=== PATIENT | male | born 1985 | race Caucasian/White ===

== ENCOUNTER 2016-08-07 18:26 | Emergency (ER) | payer OTHER ==
[~2016-08-07] VITALS: Ht 195.6 cm; Wt 114.5 kg
[~2016-08-07 18:26] MED LIST: ATARAX,VISTARIL25 MG PO; ATARAX,VISTARIL50 MG PO; ATIVAN0.5 MG PO; ATIVAN2 MG PO; B COMPLETE1 EACH PO; B-1100 MG PO; B-121000 MC2 PO; BENADRYL ALLERG25 MG PO; BENADRYL25 MG PO; BUSPAR10 MG PO; CHLORDIAZEPOXID25 MG PO; CLONAZEPAM1 MG PO; CLONIDINE HCL0.1 MG PO; CYMBALTA60 MG PO; DAILY VITE1 EAC1 PO; DEPAKOTE500 MG PO; DIVALPROEX SOD500 MG PO; DULOXETINE HCL40 MG PO; DULOXETINE HCL60 MG PO; FLUOXETINE HCL20 MG PO; FOLIC ACID1 MG PO; IBUPROFEN800 MG PO; KETOROLAC TROME10 MG PO; LIBRIUM25 MG PO; LOPRESSOR25 MG PO; LORAZEPAM1 MG PO; LUNESTA2 MG PO; MEN'S MULTI-VI1 EACH PO; METOPROLOL SUCC25 MG PO; METOPROLOL SUCC50 MG PO; ONDANSETRON ODT4 MG PO; ONE-A-DAY ESSE1 EAC1 PO; PAXIL20 MG PO; PERCOCET; PROZAC20 MG PO; PROZAC40 MG PO; QUETIAPINE FUMA25 MG PO; QUETIAPINE FUMA50 MG PO; SEROQUEL50 MG PO; THIAMINE HCL100 MG PO; TOPROL XL50 MG PO; TORADOL10 MG PO; TRAZODONE HCL50 MG PO; Thiamine,Vitamin B1 PO; XANAX0.5 MG PO; ZANTAC150 MG PO; ZOFRAN ODT4 MG PO; ZOFRAN4 MG PO
[2016-08-08 03:55] VITALS: BP 141/81
== END 2016-08-08 03:58 | disposition home or self-care (01) ==
LOC: EME 18:26
DX: F10.129 Alcohol abuse with intoxication, unspecified (principal); E78.5 Hyperlipidemia, unspecified; I10 Essential (primary) hypertension; Z87.442 Personal history of urinary calculi
CPT/HCPCS: 99281; 99283

== ENCOUNTER 2016-08-08 11:53 | Emergency (ER) | payer OTHER ==
[~2016-08-08] VITALS: Ht 195.6 cm; Wt 125.0 kg
[2016-08-08 16:10] VITALS: BP 124/74
[2016-08-08 16:24] LABS: POINT-OF-CARE METER ID UU14100415
== END 2016-08-08 16:20 | disposition home or self-care (01) ==
LOC: EME → EDBD 11:53 → EME 11:53
PROVIDERS: Emergency Medicine
DX: F10.129 Alcohol abuse with intoxication, unspecified (principal); F17.200 Nicotine dependence, unspecified, uncomplicated
CPT/HCPCS: 82948; 99281; 99284

== ENCOUNTER 2016-08-08 17:30 | Emergency (ER) | payer OTHER ==
[~2016-08-08] VITALS: Ht 198.1 cm; Wt 102.2 kg
[2016-08-09 02:52] VITALS: BP 135/84
== END 2016-08-09 02:53 | disposition home or self-care (01) ==
LOC: EME 17:30
DX: F10.129 Alcohol abuse with intoxication, unspecified (principal)
CPT/HCPCS: 99281; 99285

== ENCOUNTER 2017-01-14 10:58 | Inpatient (IN) | payer OTHER ==
[~2017-01-14] VITALS: Ht 195.6 cm; Wt 108.6 kg
[2017-01-14 12:31] LABS: ADD MIUA? YES; BILIRUBIN NEGATIVE; BLOOD MODERATE; COLOR AMBER ((YELLOW)); GLUCOSE (STRIP) NEGATIVE; KETONES 20; LEUKOCYTES NEGATIVE; NITRITE NEGATIVE; PROTEIN (STRIP) 100; SPECIFIC GRAVITY 1.026 (1.000-1.030); UROBILINOGEN 0.2 MG/DL (0.2-1.0)
[2017-01-14 12:38] LABS: BACTERIA RARE /HPF; EPITHELIAL CELLS RARE /HPF; HYALINE CASTS TNTC /LPF; MUCUS 4+ /LPF; UCUL ADDED? NO; WHITE BLOOD CELLS 0-5 /HPF (0-5)
[2017-01-14 12:40] LABS: HEMATOCRIT 54.4 % (38.0-50.0); MCH 30.8 PG (29.0-34.0); MCV 90.7 FL (86-99); PLATELET COUNT 221 K/uL (156-360); RBC DIS.WIDTH-CV 13.6 % (11.8-14.6); RBC DIS.WIDTH-SD 45.1 % (39-53); WHITE BLOOD COUNT 7.9 K/uL (4.1-10.2)
[2017-01-14 12:47] LABS: PROTHROMBIN TIME 11.2 SEC (10.2-12.9)
[2017-01-14 13:19] LABS: CHLORIDE 97 mEq/L (99-109); POTASSIUM 4.4 mEq/L (3.7-5.4); SODIUM 141 mEq/L (136-147)
[2017-01-14 13:21] LABS: GLUCOSE 72 mg/dL (70-99)
[2017-01-14 13:22] LABS: ANION GAP 24 MEQ/L (2-14)
[2017-01-14 13:23] LABS: TOTAL BILIRUBIN 0.8 mg/dL (0.0-1.0)
[2017-01-14 13:24] LABS: SERUM ETHYL ALCOHOL 234 mg/dL
[2017-01-14 13:25] LABS: ALKALINE PHOSPHATASE 100 IU/L (3-129); GFR ESTIMATE (CALCULATED) > 59 mL/min/
[2017-01-14 13:26] LABS: UREA NITROGEN (BUN) 15 mg/dL (9-23)
[2017-01-14] MEDS ORDERED: METOPROLOL SUCC50 MG PO (14:36)
[2017-01-14 16:19] LABS: MAGNESIUM 2.2 mg/dL (1.3-2.7)
[2017-01-14 16:53] VITALS: BP 139/93
[2017-01-14 19:33] VITALS: BP 135/73
[2017-01-14 20:46] LABS: HEMATOCRIT 43.7 % (38.0-50.0)
[2017-01-14 21:50] LABS: HEMATOCRIT 41.1 % (38.0-50.0); MCHC 34.8 G/DL (30.0-36.0); MCV 91.9 FL (86-99); MEAN PLAT.VOLUME 9.3 uM^3 (9.0-12.4); PLATELET COUNT 175 K/uL (156-360); RBC DIS.WIDTH-CV 13.7 % (11.8-14.6); RBC DIS.WIDTH-SD 46.3 % (39-53); WHITE BLOOD COUNT 6.6 K/uL (4.1-10.2)
[2017-01-14 22:12] LABS: RED BLOOD COUNT 4.47 M/uL (4.00-5.50)
[2017-01-14 23:25] VITALS: BP 137/71
[2017-01-15 03:46] VITALS: BP 131/67
[2017-01-15 05:58] LABS: MCV 92.8 FL (86-99)
[2017-01-15 06:25] LABS: ALKALINE PHOSPHATASE 70 IU/L (3-129); DIRECT BILIRUBIN 0.3 mg/dL (0.0-0.3); IRON 235 MCG/DL (35-150); TOTAL BILIRUBIN 1.5 MG/DL (0.0-1.0)
[2017-01-15 07:24] VITALS: BP 137/74
[2017-01-15 08:13] LABS: FERRITIN 338 NG/ML (22-322)
[2017-01-15 10:38] LABS: HEMATOCRIT 40.3 % (38.0-50.0); MCH 31.8 PG (29.0-34.0); MCHC 34.2 G/DL (30.0-36.0); MCV 92.9 FL (86-99); MEAN PLAT.VOLUME 10.1 uM^3 (9.0-12.4); PLATELET COUNT 149 K/uL (156-360); RBC DIS.WIDTH-CV 13.6 % (11.8-14.6); RBC DIS.WIDTH-SD 46.3 % (39-53); RED BLOOD COUNT 4.34 M/uL (4.00-5.50); WHITE BLOOD COUNT 5.2 K/uL (4.1-10.2)
[2017-01-15 11:11] VITALS: BP 137/76
[2017-01-15 15:09] VITALS: BP 133/75
[2017-01-15 19:31] VITALS: BP 126/73
[2017-01-15 20:11] LABS: HEMATOCRIT 42.7 % (38.0-50.0); MCV 91.6 FL (86-99)
[2017-01-15 23:29] VITALS: BP 131/80
[2017-01-16 03:57] VITALS: BP 119/72
[2017-01-16 06:14] LABS: HEMATOCRIT 39.7 % (38.0-50.0); MCH 32.4 PG (29.0-34.0); MCHC 34.5 G/DL (30.0-36.0); MCV 93.9 FL (86-99); MEAN PLAT.VOLUME 10.5 uM^3 (9.0-12.4); PLATELET COUNT 132 K/uL (156-360); RBC DIS.WIDTH-CV 13.8 % (11.8-14.6); RBC DIS.WIDTH-SD 46.5 % (39-53); RED BLOOD COUNT 4.23 M/uL (4.00-5.50); WHITE BLOOD COUNT 4.2 K/uL (4.1-10.2)
[2017-01-16 08:16] VITALS: BP 123/79
[2017-01-16 09:06] LABS: HEMATOCRIT 40.5 % (38.0-50.0); MCV 93.5 FL (86-99)
[2017-01-16] MEDS ORDERED: VITAMIN B-1100 MG PO (09:24)
[2017-01-16] MEDS ORDERED: FOLIC ACID1 MG PO (09:24)
[2017-01-16] MEDS ORDERED: ZOFRAN4 MG PO (09:26)
[2017-01-16] MEDS ORDERED: CHLORDIAZEPOXID25 MG PO (09:26)
== END 2017-01-16 11:37 | disposition home or self-care (01) | DRG 379 ==
LOC: EME 10:58 → EDOF 14:26 → 5SOUTH 14:26 → ENRESERV 14:28 → 5SOUTH 16:39 → ENPENDDIS 01-16 → 5SOUTH 01-16 11:37
PROVIDERS: Emergency Medicine; Internal Medicine; Specialist
DX: K29.21 Alcoholic gastritis with bleeding (principal); K76.0 Fatty (change of) liver, not elsewhere classified; K27.4 Chronic or unspecified peptic ulcer, site unspecified, with hemorrhage; K22.6 Gastro-esophageal laceration-hemorrhage syndrome; E78.5 Hyperlipidemia, unspecified; F41.0 Panic disorder [episodic paroxysmal anxiety]; I10 Essential (primary) hypertension; Z87.442 Personal history of urinary calculi; F10.229 Alcohol dependence with intoxication, unspecified; Y90.7 Blood alcohol level of 200-239 mg/100 ml; F17.210 Nicotine dependence, cigarettes, uncomplicated; K21.9 Gastro-esophageal reflux disease without esophagitis; Z79.899 Other long term (current) drug therapy; R25.1 Tremor, unspecified; R51 Headache; R74.0 Nonspecific elevation of levels of transaminase and lactic acid dehydrogenase [LDH]; E83.119 Hemochromatosis, unspecified
CPT/HCPCS: 71010; 76705; 80053; 80076; 81003; 81256 90; 82728; 83540; 83735; 84466; 85014; 85018; 85027; 85610; 86900; 86901; 99281; 99285; C9113; G0480; J2060; J2250; J3411; J7030

== ENCOUNTER 2017-02-19 18:03 | Emergency (ER) | payer OTHER ==
[~2017-02-19] VITALS: Ht 195.6 cm; Wt 108.9 kg
[~2017-02-19 18:03] MED LIST changes: +VITAMIN B-1100 MG PO
[2017-02-19 18:50] LABS: CHLORIDE 101 mEq/L (99-109); SODIUM 144 mEq/L (136-147)
[2017-02-19 18:52] LABS: GLUCOSE 76 mg/dL (70-99)
[2017-02-19 18:54] LABS: ANION GAP 21 MEQ/L (2-14)
[2017-02-19 18:55] LABS: SERUM ETHYL ALCOHOL 262 mg/dL
[2017-02-19 18:56] LABS: GFR ESTIMATE (CALCULATED) > 59 mL/min/
[2017-02-19 18:57] LABS: UREA NITROGEN (BUN) 17 mg/dL (9-23)
[2017-02-19] MEDS ORDERED: VALIUM5 MG PO (21:05)
[2017-02-19] MEDS ORDERED: B-1100 MG PO (21:05)
[2017-02-19 21:21] VITALS: BP 159/95
== END 2017-02-19 21:51 | disposition home or self-care (01) ==
LOC: EME 18:03
PROVIDERS: Emergency Medicine
DX: F10.239 Alcohol dependence with withdrawal, unspecified (principal); Y90.8 Blood alcohol level of 240 mg/100 ml or more; F12.90 Cannabis use, unspecified, uncomplicated; E78.5 Hyperlipidemia, unspecified; R56.9 Unspecified convulsions; F17.200 Nicotine dependence, unspecified, uncomplicated; Z87.442 Personal history of urinary calculi
CPT/HCPCS: 80048; 99281; 99284; G0480; J2060; J2405; J3411; J7030; J7050

== ENCOUNTER 2017-02-21 14:15 | Inpatient (IN) | payer OTHER ==
[~2017-02-21] VITALS: Ht 198.1 cm; Wt 109.0 kg
[~2017-02-21 14:15] MED LIST changes: +VALIUM5 MG PO
[2017-02-21 15:01] LABS: MCH 31.7 PG (29.0-34.0); MCHC 34.6 G/DL (30.0-36.0); MCV 91.7 FL (86-99); PLATELET COUNT 168 K/uL (156-360); RBC DIS.WIDTH-CV 13.2 % (11.8-14.6); RBC DIS.WIDTH-SD 45.3 % (39-53); RED BLOOD COUNT 5.67 M/uL (4.00-5.50); WHITE BLOOD COUNT 8.1 K/uL (4.1-10.2)
[2017-02-21 15:13] LABS: CHLORIDE 99 mEq/L (99-109); POTASSIUM 3.8 mEq/L (3.7-5.4); SODIUM 144 mEq/L (136-147)
[2017-02-21 15:15] LABS: GLUCOSE 88 mg/dL (70-99)
[2017-02-21 15:16] LABS: ANION GAP 16 MEQ/L (2-14)
[2017-02-21 15:18] LABS: SERUM ETHYL ALCOHOL 316 mg/dL
[2017-02-21 15:19] LABS: GFR ESTIMATE (CALCULATED) > 59 mL/min/
[2017-02-21 15:20] LABS: UREA NITROGEN (BUN) 13 mg/dL (9-23)
[2017-02-22 00:58] LABS: ADD MEDTOX COMMENT Y; AMPHETAMINE NEGATIVE (500 ng/mL); BARBITURATES NEGATIVE (200 ng/mL); BENZODIAZEPINES PRESUMPTIVE POSITIVE (150 ng/mL); COCAINE NEGATIVE (150 ng/mL); INTERNAL CONTROLS VALID? YES; METHADONE NEGATIVE (200 ng/mL); METHAMPHETAMINE NEGATIVE (500 ng/mL); OPIATES (MORPHINE) NEGATIVE (100 ng/mL); OXYCODONE NEGATIVE (100 ng/mL); PHENCYCLIDINE NEGATIVE (25 ng/mL); PROPOXYPHENE NEGATIVE (300 ng/mL); THC CANNABINOIDS NEGATIVE (50 ng/mL); TRICYCLIC ANTIDEPRESSANTS NEGATIVE (300 ng/mL)
[2017-02-22 04:24] LABS: BENZODIAZEPINES, URINE SCREEN POSITIVE (200 ng/mL)
[2017-02-22 05:23] VITALS: BP 137/88
[2017-02-22 07:55] VITALS: BP 139/86
[2017-02-22 15:24] VITALS: BP 136/82
[2017-02-23 07:56] VITALS: BP 115/69
[2017-02-23 15:19] VITALS: BP 143/80
[2017-02-24 07:37] VITALS: BP 112/63
[2017-02-24] MEDS ORDERED: DESYREL100 MG PO (09:49)
[2017-02-24] MEDS ORDERED: HYDROXYZINE PAM50 MG PO (09:49)
[2017-02-24] MEDS ORDERED: NALTREXONE HCL50 MG PO (09:49)
== END 2017-02-24 12:31 | disposition home or self-care (01) | DRG 897 ==
LOC: EME 14:15 → 1WEST 23:55 → EDOF 23:55 → ENRESERV 02-22 01:16 → 1WEST 02-22 05:18
DX: F10.229 Alcohol dependence with intoxication, unspecified (principal); R45.851 Suicidal ideations; S61.512A Laceration without foreign body of left wrist, initial encounter; S61.511A Laceration without foreign body of right wrist, initial encounter; X78.1XXA Intentional self-harm by knife, initial encounter; Y90.8 Blood alcohol level of 240 mg/100 ml or more; E78.5 Hyperlipidemia, unspecified; F17.210 Nicotine dependence, cigarettes, uncomplicated; F41.0 Panic disorder [episodic paroxysmal anxiety]; F41.1 Generalized anxiety disorder; I10 Essential (primary) hypertension; I48.2 Chronic atrial fibrillation; Z87.442 Personal history of urinary calculi; Z81.1 Family history of alcohol abuse and dependence; Z91.5 Personal history of self-harm; Y92.098 Other place in other non-institutional residence as the place of occurrence of the external cause
CPT/HCPCS: 80048; 84999; 85027; 90839; 97150 GO; 97165 GO; 99281; 99285; G0480; Q0177

== ENCOUNTER 2017-02-27 11:10 | Emergency (ER) | payer OTHER ==
[~2017-02-27] VITALS: Ht 195.6 cm; Wt 107.5 kg
[~2017-02-27 11:10] MED LIST changes: +DESYREL100 MG PO; +HYDROXYZINE PAM50 MG PO; +NALTREXONE HCL50 MG PO
[2017-02-27 12:17] LABS: HEMATOCRIT 51.9 % (38.0-50.0); MCH 31.8 PG (29.0-34.0); MCHC 34.3 G/DL (30.0-36.0); MCV 92.8 FL (86-99); MEAN PLAT.VOLUME 10.2 uM^3 (9.0-12.4); PLATELET COUNT 149 K/uL (156-360); RBC DIS.WIDTH-SD 44.4 % (39-53); RED BLOOD COUNT 5.59 M/uL (4.00-5.50); WHITE BLOOD COUNT 11.8 K/uL (4.1-10.2)
[2017-02-27 12:27] LABS: CHLORIDE 102 mEq/L (99-109); POTASSIUM 3.8 mEq/L (3.7-5.4); SODIUM 146 mEq/L (136-147)
[2017-02-27 12:29] LABS: GLUCOSE 72 mg/dL (70-99)
[2017-02-27 12:30] LABS: ANION GAP 25 MEQ/L (2-14)
[2017-02-27 12:31] LABS: TOTAL BILIRUBIN 0.4 mg/dL (0.0-1.0)
[2017-02-27 12:32] LABS: SERUM ETHYL ALCOHOL 300 mg/dL
[2017-02-27 12:33] LABS: ALKALINE PHOSPHATASE 96 IU/L (3-129); GFR ESTIMATE (CALCULATED) > 59 mL/min/
[2017-02-27 12:34] LABS: UREA NITROGEN (BUN) 13 mg/dL (9-23)
[2017-02-27 21:47] VITALS: BP 141/78
== END 2017-02-27 21:51 | disposition left against medical advice (07) ==
LOC: EME 11:10
PROVIDERS: Emergency Medicine
DX: F32.9 Major depressive disorder, single episode, unspecified (principal); F10.129 Alcohol abuse with intoxication, unspecified; Y90.8 Blood alcohol level of 240 mg/100 ml or more; E78.5 Hyperlipidemia, unspecified; F17.200 Nicotine dependence, unspecified, uncomplicated
CPT/HCPCS: 80053; 81003; 85027; 90839; 99281; 99285; G0480

== ENCOUNTER 2017-03-02 09:12 | Inpatient (IN) | payer OTHER ==
[~2017-03-02] VITALS: Ht 195.6 cm; Wt 109.0 kg
[2017-03-02 10:13] LABS: EOSINOPHIL COUNT 0.1 K/uL (0-0.3); HEMATOCRIT 49.8 % (38.0-50.0); IMMATURE GRANULOCYTE (%) 0.7 % (0.0-0.7); INSTRUMENT ABS NEUTROPHIL CT 3.6 K/uL; LYMPHOCYTE COUNT 1.7 K/uL (1.0-2.8); MCH 31.5 PG (29.0-34.0); MCHC 33.7 G/DL (30.0-36.0); MCV 93.4 FL (86-99); MEAN PLAT.VOLUME 9.6 uM^3 (9.0-12.4); MONOCYTE (%) 12.2 % (3-12); MONOCYTE COUNT 0.8 K/uL (0-0.8); NEUTROPHIL (%) 58.3 % (45-76); NEUTROPHIL COUNT 3.6 K/uL (1.8-6.4); PLATELET COUNT 156 K/uL (156-360); RBC DIS.WIDTH-CV 13.3 % (11.8-14.6); RBC DIS.WIDTH-SD 45.6 % (39-53); RED BLOOD COUNT 5.33 M/uL (4.00-5.50); WHITE BLOOD COUNT 6.1 K/uL (4.1-10.2)
[2017-03-02 10:23] LABS: CHLORIDE 104 mEq/L (99-109); POTASSIUM 3.7 mEq/L (3.7-5.4); SODIUM 146 mEq/L (136-147)
[2017-03-02 10:25] LABS: GLUCOSE 77 mg/dL (70-99)
[2017-03-02 10:26] LABS: ANION GAP 14 MEQ/L (2-14)
[2017-03-02 10:28] LABS: SERUM ETHYL ALCOHOL 216 mg/dL
[2017-03-02 10:29] LABS: GFR ESTIMATE (CALCULATED) > 59 mL/min/
[2017-03-02 10:30] LABS: UREA NITROGEN (BUN) 9 mg/dL (9-23)
[2017-03-02 14:27] LABS: AMPHETAMINE NEGATIVE (500 ng/mL); BARBITURATES NEGATIVE (200 ng/mL); BENZODIAZEPINES PRESUMPTIVE POSITIVE (150 ng/mL); COCAINE NEGATIVE (150 ng/mL); INTERNAL CONTROLS VALID? YES; METHADONE NEGATIVE (200 ng/mL); METHAMPHETAMINE NEGATIVE (500 ng/mL); OPIATES (MORPHINE) NEGATIVE (100 ng/mL); OXYCODONE NEGATIVE (100 ng/mL); PHENCYCLIDINE NEGATIVE (25 ng/mL); PROPOXYPHENE NEGATIVE (300 ng/mL); THC CANNABINOIDS NEGATIVE (50 ng/mL); TRICYCLIC ANTIDEPRESSANTS NEGATIVE (300 ng/mL)
[2017-03-02 14:28] LABS: ADD MEDTOX COMMENT Y
[2017-03-02 15:01] LABS: BENZODIAZEPINES, URINE SCREEN POSITIVE (200 ng/mL)
[2017-03-02 17:32] VITALS: BP 132/75
[2017-03-02 17:39] VITALS: BP 132/75
[2017-03-02 22:17] VITALS: BP 110/58
[2017-03-03 08:02] VITALS: BP 134/81
[2017-03-03 15:36] VITALS: BP 136/91
[2017-03-04 07:16] VITALS: BP 125/62
[2017-03-04 12:51] VITALS: BP 132/86
[2017-03-04 15:12] VITALS: BP 131/75
[2017-03-05 07:38] VITALS: BP 106/59
[2017-03-05] MEDS ORDERED: EFFEXOR XR37.5 MG PO (09:32)
== END 2017-03-05 12:47 | disposition home or self-care (01) | DRG 885 ==
LOC: EME 09:12 → EDOF 15:53 → 1WEST 15:53 → ENRESERV 17:20 → 1WEST 17:28
PROVIDERS: Emergency Medicine
PROC: HZ2ZZZZ Detoxification Services for Substance Abuse Treatment (ICD-10-PCS; principal; 2017-03-02)
DX: F33.9 Major depressive disorder, recurrent, unspecified (principal); F10.239 Alcohol dependence with withdrawal, unspecified; F41.1 Generalized anxiety disorder; R45.851 Suicidal ideations; I10 Essential (primary) hypertension; I48.91 Unspecified atrial fibrillation; E78.5 Hyperlipidemia, unspecified; F17.200 Nicotine dependence, unspecified, uncomplicated; Y90.7 Blood alcohol level of 200-239 mg/100 ml; Z91.19 Patient's noncompliance with other medical treatment and regimen; Z91.5 Personal history of self-harm
CPT/HCPCS: 80048; 84999; 85025; 90839; 97165 GO; 99281; 99285; G0480; Q0177

== ENCOUNTER 2017-03-10 13:56 | Inpatient (IN) | payer OTHER ==
[~2017-03-10] VITALS: Ht 195.6 cm; Wt 111.0 kg
[~2017-03-10 13:56] MED LIST changes: +EFFEXOR XR37.5 MG PO
[2017-03-10 14:51] LABS: EOSINOPHIL (%) 0 % (0-5); HEMATOCRIT 48.7 % (38.0-50.0); IMMATURE GRANULOCYTE (%) 0.7 % (0.0-0.7); IMMATURE GRANULOCYTE COUNT 0.1 K/uL; LYMPHOCYTE COUNT 1.6 K/uL (1.0-2.8); MCH 31.5 PG (29.0-34.0); MCHC 34.1 G/DL (30.0-36.0); MCV 92.4 FL (86-99); MEAN PLAT.VOLUME 9.4 uM^3 (9.0-12.4); MONOCYTE (%) 6.9 % (3-12); MONOCYTE COUNT 0.8 K/uL (0-0.8); NEUTROPHIL (%) 78.3 % (45-76); RBC DIS.WIDTH-CV 13.7 % (11.8-14.6); RBC DIS.WIDTH-SD 46.5 % (39-53); RED BLOOD COUNT 5.27 M/uL (4.00-5.50); WHITE BLOOD COUNT 11.5 K/uL (4.1-10.2)
[2017-03-10 14:52] LABS: PLATELET COUNT 229 K/uL (156-360)
[2017-03-10 14:57] LABS: CHLORIDE 102 mEq/L (99-109); POTASSIUM 4.3 mEq/L (3.7-5.4); SODIUM 144 mEq/L (136-147)
[2017-03-10 14:58] LABS: GLUCOSE 64 mg/dL (70-99)
[2017-03-10 15:00] LABS: ANION GAP 28 MEQ/L (2-14)
[2017-03-10 15:01] LABS: SERUM ETHYL ALCOHOL 270 mg/dL
[2017-03-10 15:02] LABS: GFR ESTIMATE (CALCULATED) > 59 mL/min/
[2017-03-10 15:03] LABS: UREA NITROGEN (BUN) 17 mg/dL (9-23)
[2017-03-10 15:53] LABS: ADD MIUA? YES; BILIRUBIN NEGATIVE; BLOOD SMALL; COLOR YELLOW ((YELLOW)); GLUCOSE (STRIP) NEGATIVE; KETONES 80; LEUKOCYTES NEGATIVE; NITRITE NEGATIVE; PROTEIN (STRIP) 100; SPECIFIC GRAVITY 1.027 (1.000-1.030); UROBILINOGEN 0.2 MG/DL (0.2-1.0)
[2017-03-10 15:57] LABS: AMPHETAMINE NEGATIVE (500 ng/mL); BARBITURATES NEGATIVE (200 ng/mL); BENZODIAZEPINES PRESUMPTIVE POSITIVE (150 ng/mL); COCAINE NEGATIVE (150 ng/mL); INTERNAL CONTROLS VALID? YES; METHADONE NEGATIVE (200 ng/mL); METHAMPHETAMINE NEGATIVE (500 ng/mL); OPIATES (MORPHINE) NEGATIVE (100 ng/mL); OXYCODONE NEGATIVE (100 ng/mL); PHENCYCLIDINE NEGATIVE (25 ng/mL); PROPOXYPHENE NEGATIVE (300 ng/mL); THC CANNABINOIDS NEGATIVE (50 ng/mL); TRICYCLIC ANTIDEPRESSANTS NEGATIVE (300 ng/mL)
[2017-03-10 15:58] LABS: ADD MEDTOX COMMENT Y
[2017-03-10 16:04] LABS: BACTERIA NONE SEEN /HPF; EPITHELIAL CELLS NONE SEEN /HPF; HYALINE CASTS 0-5 /LPF; MUCUS 3+ /LPF; RED BLOOD CELLS 0-5 /HPF (0-5)
[2017-03-10 16:24] LABS: BENZODIAZEPINES, URINE SCREEN POSITIVE (200 ng/mL)
[2017-03-10] MEDS ORDERED: HYDROXYZINE PAM50 MG PO (23:40)
[2017-03-10] MEDS ORDERED: ADVIL,NUPRIN,M200 MG PO (23:41)
[2017-03-10] MEDS ORDERED: DAILY VITAMIN1 EAC4 PO (23:42)
[2017-03-10] MEDS ORDERED: FOLIC ACID1 MG PO (23:42)
[2017-03-11 00:04] VITALS: BP 131/73
[2017-03-11 00:13] VITALS: BP 131/73
[2017-03-11 07:52] VITALS: BP 132/76
[2017-03-11] MEDS ORDERED: BUPROPION HCL100 M1 PO (09:13)
[2017-03-11] MEDS ORDERED: DISULFIRAM250 MG PO (09:13)
== END 2017-03-11 11:25 | disposition home or self-care (01) | DRG 885 ==
LOC: EME 13:56 → 1WEST 22:08 → EDOF 22:08 → 1WEST 23:44 → ENRESERV 23:44 → 1WEST 03-11 11:25
PROVIDERS: Emergency Medicine
DX: F33.9 Major depressive disorder, recurrent, unspecified (principal); R45.851 Suicidal ideations; F41.1 Generalized anxiety disorder; F10.20 Alcohol dependence, uncomplicated; I10 Essential (primary) hypertension; I48.91 Unspecified atrial fibrillation; Y90.8 Blood alcohol level of 240 mg/100 ml or more; F17.200 Nicotine dependence, unspecified, uncomplicated; T88.7XXA Unspecified adverse effect of drug or medicament, initial encounter; T44.7X6A Underdosing of beta-adrenoreceptor antagonists, initial encounter; Z91.19 Patient's noncompliance with other medical treatment and regimen; Z76.5 Malingerer [conscious simulation]; Z91.14 Patient's other noncompliance with medication regimen
CPT/HCPCS: 80048; 81003; 84999; 85025; 90839; 93005; 99281; 99285; G0480; J7030

== ENCOUNTER 2017-06-29 17:52 | Emergency (ER) | payer OTHER ==
[~2017-06-29] VITALS: Ht 195.6 cm; Wt 113.5 kg
[~2017-06-29 17:52] MED LIST changes: +ADVIL,NUPRIN,M200 MG PO; +BUPROPION HCL100 M1 PO; +DAILY VITAMIN1 EAC4 PO; +DISULFIRAM250 MG PO
[2017-06-29 18:44] LABS: HEMATOCRIT 48.6 % (38.0-50.0); HEMOGLOBIN 17.1 G/DL (12.5-16.6); MCH 32.3 PG (29.0-34.0); MCHC 35.2 G/DL (30.0-36.0); MCV 91.7 FL (86-99); PLATELET COUNT 170 K/uL (156-360); RBC DIS.WIDTH-CV 12.4 % (11.8-14.6); RBC DIS.WIDTH-SD 41.8 % (39-53); WHITE BLOOD COUNT 5.8 K/uL (4.1-10.2)
[2017-06-29 18:54] LABS: ALBUMIN 4.3 g/dL (3.2-4.8)
[2017-06-29 18:55] LABS: CHLORIDE 107 mEq/L (99-109); POTASSIUM 3.9 mEq/L (3.7-5.4); SODIUM 146 mEq/L (136-147)
[2017-06-29 18:57] LABS: GLUCOSE 96 mg/dL (70-99); TOTAL PROTEIN 7.6 g/dL (6.4-8.3)
[2017-06-29 18:59] LABS: TOTAL BILIRUBIN 0.3 mg/dL (0.0-1.0)
[2017-06-29 19:00] LABS: ALKALINE PHOSPHATASE 92 IU/L (3-129); SERUM ETHYL ALCOHOL 414 mg/dL
[2017-06-29 19:01] LABS: CREATININE 0.8 mg/dL (0.6-1.3); GFR ESTIMATE (CALCULATED) > 59 mL/min/ (58.99-99999)
[2017-06-29 19:02] LABS: AST (GOT) 51 IU/L (2-34); UREA NITROGEN (BUN) 11 mg/dL (9-23)
[2017-06-29 19:03] LABS: ALT (GPT) 61 IU/L (3-49)
[2017-06-29 19:04] LABS: LIPASE 34 U/L (1.0-51.0)
[2017-06-29 20:02] LABS: AMPHETAMINE NEGATIVE (500 ng/mL); BARBITURATES NEGATIVE (200 ng/mL); BENZODIAZEPINES NEGATIVE (150 ng/mL); BUPRENORPHINE NEGATIVE (10 ng/mL); COCAINE NEGATIVE (150 ng/mL); METHADONE NEGATIVE (200 ng/mL); METHAMPHETAMINE NEGATIVE (500 ng/mL); OPIATES (MORPHINE) NEGATIVE (100 ng/mL); OXYCODONE NEGATIVE (100 ng/mL); PHENCYCLIDINE NEGATIVE (25 ng/mL); PROPOXYPHENE NEGATIVE (300 ng/mL); THC CANNABINOIDS NEGATIVE (50 ng/mL); TRICYCLIC ANTIDEPRESSANTS NEGATIVE (300 ng/mL)
[2017-06-29 23:40] VITALS: BP 115/68
== END 2017-06-29 23:43 | disposition home or self-care (01) ==
LOC: EME 17:52
PROVIDERS: Emergency Medicine
DX: F10.121 Alcohol abuse with intoxication delirium (principal); F41.9 Anxiety disorder, unspecified; F17.200 Nicotine dependence, unspecified, uncomplicated; Y90.8 Blood alcohol level of 240 mg/100 ml or more; Z91.5 Personal history of self-harm
CPT/HCPCS: 80053; 83690; 85027; 99281; 99285; G0480; J7030

== ENCOUNTER 2017-07-11 16:20 | Inpatient (IN) | payer OTHER ==
[~2017-07-11] VITALS: Ht 198.1 cm; Wt 114.7 kg
[2017-07-11 18:15] LABS: ALBUMIN 3.8 g/dL (3.2-4.8); CHLORIDE 111 mEq/L (99-109); POTASSIUM 3.6 mEq/L (3.7-5.4); SODIUM 145 mEq/L (136-147)
[2017-07-11 18:16] LABS: HEMATOCRIT 39.5 % (38.0-50.0); HEMOGLOBIN 13.8 G/DL (12.5-16.6); MCH 32.2 PG (29.0-34.0); MCHC 34.9 G/DL (30.0-36.0); MCV 92.3 FL (86-99); PLATELET COUNT 132 K/uL (156-360); RBC DIS.WIDTH-CV 13.5 % (11.8-14.6); RED BLOOD COUNT 4.28 M/uL (4.00-5.50); WHITE BLOOD COUNT 5.1 K/uL (4.1-10.2)
[2017-07-11 18:18] LABS: GLUCOSE 112 mg/dL (70-99); TOTAL PROTEIN 6.6 g/dL (6.4-8.3)
[2017-07-11 18:20] LABS: TOTAL BILIRUBIN 0.1 mg/dL (0.0-1.0)
[2017-07-11 18:21] LABS: ALKALINE PHOSPHATASE 81 IU/L (3-129); SERUM ETHYL ALCOHOL 308 mg/dL
[2017-07-11 18:22] LABS: CREATININE 0.9 mg/dL (0.6-1.3); GFR ESTIMATE (CALCULATED) > 59 mL/min/ (58.99-99999)
[2017-07-11 18:23] LABS: AST (GOT) 36 IU/L (2-34); UREA NITROGEN (BUN) 6 mg/dL (9-23)
[2017-07-11 18:24] LABS: ALT (GPT) 73 IU/L (3-49)
[2017-07-12 05:12] VITALS: BP 123/72
[2017-07-12] MEDS ORDERED: WELLBUTRIN XL300 MG PO (05:54)
[2017-07-12] MEDS ORDERED: NEURONTIN100 MG PO (05:56)
[2017-07-12] MEDS ORDERED: NICODERM CQ1 EAC2 TD (05:57)
[2017-07-12] MEDS ORDERED: NICORELIEF2 MG BC (05:59)
[2017-07-12 07:52] VITALS: BP 137/63
[2017-07-12 15:23] VITALS: BP 132/67
[2017-07-13 08:15] VITALS: BP 124/71
[2017-07-13 15:09] VITALS: BP 115/65
[2017-07-14 07:43] VITALS: BP 106/60
[2017-07-14 15:35] VITALS: BP 110/61
[2017-07-15 07:45] VITALS: BP 121/76
[2017-07-15 15:25] VITALS: BP 98/57
[2017-07-16 08:31] VITALS: BP 111/63
[2017-07-16] MEDS ORDERED: NEURONTIN600 MG PO (09:17)
[2017-07-16] MEDS ORDERED: NALTREXONE HCL50 MG PO (09:17)
[2017-07-16] MEDS ORDERED: DESYREL100 MG PO (09:17)
[2017-07-16] MEDS ORDERED: WELLBUTRIN XL300 MG PO (09:17)
== END 2017-07-16 12:58 | disposition home or self-care (01) | DRG 885 ==
LOC: EME 16:20 → 1WEST 07-12 02:52 → EDOF 07-12 02:52 → ENRESERV 07-12 03:46 → 1WEST 07-12 05:05
PROVIDERS: Emergency Medicine
DX: F33.1 Major depressive disorder, recurrent, moderate (principal); F10.239 Alcohol dependence with withdrawal, unspecified; R45.851 Suicidal ideations; F41.9 Anxiety disorder, unspecified; F10.220 Alcohol dependence with intoxication, uncomplicated; F10.230 Alcohol dependence with withdrawal, uncomplicated; Y90.8 Blood alcohol level of 240 mg/100 ml or more
CPT/HCPCS: 80053; 80306 90; 81003; 85027; 90837; 99281; 99285; G0480; J0515; J1200; J1630; J2060; Q0177

== ENCOUNTER 2017-07-20 09:40 | Emergency (ER) | payer OTHER ==
[~2017-07-20] VITALS: Ht 198.1 cm; Wt 113.2 kg
[~2017-07-20 09:40] MED LIST changes: +NEURONTIN100 MG PO; +NEURONTIN600 MG PO; +NICODERM CQ1 EAC2 TD; +NICORELIEF2 MG BC; +WELLBUTRIN XL300 MG PO
[2017-07-20 11:12] LABS: APPEARANCE CLEAR ((CLEAR)); BILIRUBIN NEGATIVE; BLOOD NEGATIVE; COLOR YELLOW ((YELLOW)); GLUCOSE (STRIP) NEGATIVE; KETONES NEGATIVE; LEUKOCYTES NEGATIVE; NITRITE NEGATIVE; PROTEIN (STRIP) 100; SPECIFIC GRAVITY 1.011 (1.000-1.030); UROBILINOGEN 0.2 MG/DL (0.2-1.0)
[2017-07-20 11:15] LABS: BACTERIA NONE SEEN /HPF; EPITHELIAL CELLS RARE /HPF; HYALINE CASTS 0-5 /LPF; MUCUS 1+ /LPF; RED BLOOD CELLS 0-5 /HPF (0-5); UCUL ADDED? NO; WHITE BLOOD CELLS 0-5 /HPF (0-5)
[2017-07-20 13:01] LABS: BASOPHIL (%) 0.7 % (0-1); BASOPHIL COUNT 0.1 K/uL (0-0.1); EOSINOPHIL (%) 0.1 % (0-5); HEMATOCRIT 49.9 % (38.0-50.0); IMMATURE GRANULOCYTE (%) 0.6 % (0.0-0.7); LYMPHOCYTE (%) 30.6 % (15-42); LYMPHOCYTE COUNT 2.2 K/uL (1.0-2.8); MCH 32.4 PG (29.0-34.0); MCHC 34.9 G/DL (30.0-36.0); MCV 92.9 FL (86-99); MONOCYTE (%) 9.5 % (3-12); MONOCYTE COUNT 0.7 K/uL (0-0.8); NEUTROPHIL (%) 58.5 % (45-76); NEUTROPHIL COUNT 4.3 K/uL (1.8-6.4); RBC DIS.WIDTH-CV 14.2 % (11.8-14.6); RBC DIS.WIDTH-SD 48.4 % (39-53); WHITE BLOOD COUNT 7.3 K/uL (4.1-10.2)
[2017-07-20 13:02] LABS: HEMOGLOBIN 17.4 G/DL (12.5-16.6); PLATELET COUNT 266 K/uL (156-360); RED BLOOD COUNT 5.37 M/uL (4.00-5.50)
[2017-07-20 13:08] LABS: CHLORIDE 104 mEq/L (99-109); SODIUM 147 mEq/L (136-147)
[2017-07-20 13:10] LABS: GLUCOSE 96 mg/dL (70-99)
[2017-07-20 13:13] LABS: SERUM ETHYL ALCOHOL 359 mg/dL
[2017-07-20 13:14] LABS: CREATININE 0.8 mg/dL (0.6-1.3); GFR ESTIMATE (CALCULATED) > 59 mL/min/ (58.99-99999); UREA NITROGEN (BUN) 11 mg/dL (9-23)
[2017-07-20 13:28] LABS: AMPHETAMINE NEGATIVE (500 ng/mL); BARBITURATES NEGATIVE (200 ng/mL); BENZODIAZEPINES PRESUMPTIVE POSITIVE (150 ng/mL); BUPRENORPHINE NEGATIVE (10 ng/mL); COCAINE NEGATIVE (150 ng/mL); METHADONE NEGATIVE (200 ng/mL); METHAMPHETAMINE NEGATIVE (500 ng/mL); OPIATES (MORPHINE) NEGATIVE (100 ng/mL); OXYCODONE NEGATIVE (100 ng/mL); PHENCYCLIDINE NEGATIVE (25 ng/mL); PROPOXYPHENE NEGATIVE (300 ng/mL); THC CANNABINOIDS NEGATIVE (50 ng/mL); TRICYCLIC ANTIDEPRESSANTS NEGATIVE (300 ng/mL)
[2017-07-20 14:03] LABS: BENZODIAZEPINES, URINE SCREEN Negative (200 ng/mL)
[2017-07-21] MEDS ORDERED: SEROQUEL12.5 MG PO (11:03)
[2017-07-21 12:07] VITALS: BP 136/78
== END 2017-07-21 12:10 | disposition home or self-care (01) ==
LOC: EME 09:40
PROVIDERS: Emergency Medicine
DX: F43.23 Adjustment disorder with mixed anxiety and depressed mood (principal); F10.229 Alcohol dependence with intoxication, unspecified; R45.851 Suicidal ideations; Y90.8 Blood alcohol level of 240 mg/100 ml or more; F17.200 Nicotine dependence, unspecified, uncomplicated
CPT/HCPCS: 80048; 81003; 84999; 85025; 99281; 99285; G0480

== ENCOUNTER 2018-02-01 13:57 | Emergency (ER) | payer OTHER ==
[~2018-02-01] VITALS: Ht 198.1 cm; Wt 109.0 kg
[~2018-02-01 13:57] MED LIST changes: +SEROQUEL12.5 MG PO
[2018-02-01 20:47] LABS: AMPHETAMINE NEGATIVE (500 ng/mL); BARBITURATES NEGATIVE (200 ng/mL); BENZODIAZEPINES NEGATIVE (150 ng/mL); BUPRENORPHINE NEGATIVE (10 ng/mL); COCAINE NEGATIVE (150 ng/mL); METHADONE NEGATIVE (200 ng/mL); METHAMPHETAMINE NEGATIVE (500 ng/mL); OPIATES (MORPHINE) NEGATIVE (100 ng/mL); OXYCODONE NEGATIVE (100 ng/mL); PHENCYCLIDINE NEGATIVE (25 ng/mL); PROPOXYPHENE NEGATIVE (300 ng/mL); THC CANNABINOIDS PRESUMPTIVE POSITIVE (50 ng/mL); TRICYCLIC ANTIDEPRESSANTS NEGATIVE (300 ng/mL)
[2018-02-02] MEDS ORDERED: FOLIC ACID1 MG PO (04:11)
[2018-02-02] MEDS ORDERED: LIBRIUM25 MG PO (04:11)
[2018-02-02 04:57] VITALS: BP 141/83
== END 2018-02-02 04:59 | disposition home or self-care (01) ==
LOC: EME 13:57
PROVIDERS: Emergency Medicine
DX: F10.129 Alcohol abuse with intoxication, unspecified (principal); Y90.8 Blood alcohol level of 240 mg/100 ml or more; F32.9 Major depressive disorder, single episode, unspecified; R45.851 Suicidal ideations; F17.200 Nicotine dependence, unspecified, uncomplicated
CPT/HCPCS: 84999; 90839; 93005; 99281; 99285; G0480; J2060; J2405; J7030

== ENCOUNTER 2018-02-02 13:52 | Emergency (ER) | payer OTHER ==
[~2018-02-02] VITALS: Ht 185.4 cm; Wt 107.0 kg
[2018-02-02 14:37] LABS: BASOPHIL (%) 0.5 % (0-1); BASOPHIL COUNT 0.1 K/uL (0-0.1); EOSINOPHIL (%) 0 % (0-5); HEMATOCRIT 47.7 % (38.0-50.0); HEMOGLOBIN 16.6 G/DL (12.5-16.6); IMMATURE GRANULOCYTE (%) 0.6 % (0.0-0.7); LYMPHOCYTE (%) 9.8 % (15-42); LYMPHOCYTE COUNT 1.1 K/uL (1.0-2.8); MCH 30.9 PG (29.0-34.0); MCHC 34.8 G/DL (30.0-36.0); MCV 88.7 FL (86-99); MONOCYTE (%) 11.1 % (3-12); MONOCYTE COUNT 1.2 K/uL (0-0.8); NEUTROPHIL COUNT 8.5 K/uL (1.8-6.4); RBC DIS.WIDTH-CV 12.2 % (11.8-14.6); RED BLOOD COUNT 5.38 M/uL (4.00-5.50); WHITE BLOOD COUNT 10.8 K/uL (4.1-10.2)
[2018-02-02 14:41] LABS: CHLORIDE 100 mEq/L (99-109); POTASSIUM 2.9 mEq/L (3.7-5.4); SODIUM 144 mEq/L (136-147)
[2018-02-02 14:42] LABS: GLUCOSE 111 mg/dL (70-99)
[2018-02-02 14:46] LABS: CREATININE 0.8 mg/dL (0.6-1.3); GFR ESTIMATE (CALCULATED) > 59 mL/min/ (58.99-99999); SERUM ETHYL ALCOHOL 386 mg/dL
[2018-02-02 14:47] LABS: UREA NITROGEN (BUN) 14 mg/dL (9-23)
[2018-02-02 15:13] LABS: PLAT.SUFFICIENCY DECREASED; PLATELET COUNT 162 K/uL (156-360)
[2018-02-02 16:26] LABS: APPEARANCE CLEAR ((CLEAR)); BILIRUBIN NEGATIVE; BLOOD SMALL; COLOR YELLOW ((YELLOW)); GLUCOSE (STRIP) NEGATIVE; KETONES NEGATIVE; LEUKOCYTES NEGATIVE; NITRITE NEGATIVE; PROTEIN (STRIP) 30; SPECIFIC GRAVITY 1.005 (1.000-1.030); UROBILINOGEN 0.2 MG/DL (0.2-1.0)
[2018-02-02 16:33] LABS: BACTERIA RARE /HPF; EPITHELIAL CELLS RARE /HPF; MUCUS NONE SEEN /LPF; RED BLOOD CELLS 0-5 /HPF (0-5); WHITE BLOOD CELLS 0-5 /HPF (0-5)
[2018-02-02 17:07] LABS: AMPHETAMINE NEGATIVE (500 ng/mL); BARBITURATES NEGATIVE (200 ng/mL); BENZODIAZEPINES PRESUMPTIVE POSITIVE (150 ng/mL); BUPRENORPHINE NEGATIVE (10 ng/mL); COCAINE NEGATIVE (150 ng/mL); METHADONE NEGATIVE (200 ng/mL); METHAMPHETAMINE NEGATIVE (500 ng/mL); OPIATES (MORPHINE) NEGATIVE (100 ng/mL); OXYCODONE NEGATIVE (100 ng/mL); PHENCYCLIDINE NEGATIVE (25 ng/mL); PROPOXYPHENE NEGATIVE (300 ng/mL); THC CANNABINOIDS PRESUMPTIVE POSITIVE (50 ng/mL); TRICYCLIC ANTIDEPRESSANTS NEGATIVE (300 ng/mL)
[2018-02-02 19:14] VITALS: BP 127/77
[2018-02-02 22:26] LABS: BENZODIAZEPINES, URINE SCREEN Negative (200 ng/mL)
== END 2018-02-02 19:15 | disposition home or self-care (01) ==
LOC: EME 13:52
PROVIDERS: Emergency Medicine
DX: F10.129 Alcohol abuse with intoxication, unspecified (principal); Y90.8 Blood alcohol level of 240 mg/100 ml or more; F32.9 Major depressive disorder, single episode, unspecified; F17.200 Nicotine dependence, unspecified, uncomplicated
CPT/HCPCS: 80048; 81003; 84999; 85025; 99281; 99285; G0480

== ENCOUNTER 2018-02-04 12:42 | Inpatient (IN) | payer OTHER ==
[~2018-02-04] VITALS: Ht 304.8 cm; Wt 108.5 kg
[2018-02-04 13:57] LABS: CHLORIDE 103 mEq/L (99-109); POTASSIUM 3.4 mEq/L (3.7-5.4); SODIUM 146 mEq/L (136-147)
[2018-02-04 13:59] LABS: GLUCOSE 102 mg/dL (70-99)
[2018-02-04 14:02] LABS: CREATININE 0.9 mg/dL (0.6-1.3); GFR ESTIMATE (CALCULATED) > 59 mL/min/ (58.99-99999); SERUM ETHYL ALCOHOL 427 mg/dL
[2018-02-04 14:03] LABS: UREA NITROGEN (BUN) 9 mg/dL (9-23)
[2018-02-04 14:16] LABS: AMPHETAMINE NEGATIVE (500 ng/mL); BARBITURATES NEGATIVE (200 ng/mL); BENZODIAZEPINES PRESUMPTIVE POSITIVE (150 ng/mL); BUPRENORPHINE NEGATIVE (10 ng/mL); COCAINE NEGATIVE (150 ng/mL); METHADONE NEGATIVE (200 ng/mL); METHAMPHETAMINE NEGATIVE (500 ng/mL); OPIATES (MORPHINE) NEGATIVE (100 ng/mL); OXYCODONE NEGATIVE (100 ng/mL); PHENCYCLIDINE NEGATIVE (25 ng/mL); PROPOXYPHENE NEGATIVE (300 ng/mL); THC CANNABINOIDS PRESUMPTIVE POSITIVE (50 ng/mL); TRICYCLIC ANTIDEPRESSANTS NEGATIVE (300 ng/mL)
[2018-02-04 14:23] LABS: HEMATOCRIT 47.7 % (38.0-50.0); HEMOGLOBIN 16.7 G/DL (12.5-16.6); MCH 31.2 PG (29.0-34.0); MCV 89.2 FL (86-99); PLATELET COUNT 140 K/uL (156-360); RBC DIS.WIDTH-CV 12.4 % (11.8-14.6); RBC DIS.WIDTH-SD 40.9 % (39-53); RED BLOOD COUNT 5.35 M/uL (4.00-5.50); WHITE BLOOD COUNT 6.5 K/uL (4.1-10.2)
[2018-02-04 15:14] LABS: BENZODIAZEPINES, URINE SCREEN Negative (200 ng/mL)
[2018-02-05 18:06] VITALS: BP 147/95
[2018-02-05] MEDS ORDERED: QUETIAPINE FUMA25 MG PO (18:50)
[2018-02-05] MEDS ORDERED: TOPROL XL50 MG PO (19:05)
[2018-02-05] MEDS ORDERED: WELLBUTRIN XL300 MG PO (19:09)
[2018-02-05] MEDS ORDERED: GABAPENTIN600 MG PO (19:11)
[2018-02-05] MEDS ORDERED: ATARAX,VISTARIL50 MG PO (19:14)
[2018-02-05] MEDS ORDERED: DESYREL100 MG PO (19:18)
[2018-02-05] MEDS ORDERED: NICODERM CQ1 EAC1 TD (19:20)
[2018-02-06 08:55] VITALS: BP 147/84
[2018-02-06 16:39] VITALS: BP 142/86
[2018-02-07 08:10] VITALS: BP 111/60
[2018-02-07 15:19] VITALS: BP 133/78
[2018-02-07 21:57] VITALS: BP 135/89
[2018-02-08 07:51] VITALS: BP 120/59
[2018-02-08 17:04] VITALS: BP 154/99
[2018-02-08 22:19] VITALS: BP 150/84
[2018-02-09 07:31] VITALS: BP 165/88
[2018-02-09 16:40] VITALS: BP 118/80
[2018-02-09 23:30] VITALS: BP 126/80
[2018-02-10 07:43] VITALS: BP 122/58
[2018-02-10] MEDS ORDERED: GABAPENTIN600 MG PO (09:12)
[2018-02-10] MEDS ORDERED: BUPROPION XL150 MG PO (09:12)
== END 2018-02-10 10:51 | disposition other institution (70) | DRG 885 ==
LOC: EME 12:42 → 1WEST 02-05 15:35 → ENRESERV 02-05 17:55 → 1WEST 02-10 10:51
PROVIDERS: Emergency Medicine
DX: F33.2 Major depressive disorder, recurrent severe without psychotic features (principal); R45.851 Suicidal ideations; F10.220 Alcohol dependence with intoxication, uncomplicated; F12.90 Cannabis use, unspecified, uncomplicated; Y90.8 Blood alcohol level of 240 mg/100 ml or more; Z91.5 Personal history of self-harm; F41.1 Generalized anxiety disorder; F17.210 Nicotine dependence, cigarettes, uncomplicated; I48.91 Unspecified atrial fibrillation
CPT/HCPCS: 71046; 80048; 84999; 85027; 90839; 97150 GO; 97165 GO; 99281; 99285; G0480; Q0177